=== PATIENT | male | born 1945 | race Caucasian/White ===

== ENCOUNTER 2016-06-12 05:56 | Emergency (ER) | payer MEDICARE, BC ==
[2016-06-12] MEDS ORDERED: MORPHINE SULFATE 10 MG/ML INJ IV ONE ×3 (06:17→09:16)
[2016-06-12] MEDS ORDERED: ONDANSETRON HCL INJ/PF 4 MG/2 ML SDV IV ONE ×2 (06:17→09:16)
[2016-06-12] MEDS ORDERED: KETOROLAC TROMETHAMINE INJ/PF 30 MG/1 ML SDV IV ONE (06:17)
--- NOTE | 2016-06-12 06:21 | ER Document Report ---
ED General - General Information source: Patient TRAVEL OUTSIDE OF THE [place] IN LAST 30 DAYS: No - HPI Patient complains to provider of: Left Flank Pain Onset: This morning - 04:30 Onset/Duration: Sudden, Persistent Associated symptoms: Nausea <DUKE NOLASCO - Last Filed: 06/12/16 07:48> <SELWYN BLANCO - Last Filed: 06/12/16 10:10> - General Chief Complaint: Flank Pain Stated Complaint: LEFT FLANK PAIN, NAUSEA Notes: Patient is a 70-year-old male presenting to the emergency department concerned of left-sided flank pain that radiates into his shoulder blade onset this morning at approximately 04:30. Patient's states that he got up to use the restroom and went back to sleep. Shortly thereafter, the patient awoke with excruciating pain in his left lower back. The patient has a history of kidney stones, but he states that he has "never felt pain like this before." (DUKE NOLASCO) - Related Data Allergies/Adverse Reactions: No Known Allergies Allergy (Verified 06/12/16 06:00) Past Medical History - General Information source: Patient, Relative - - Social History Smoking Status: Current Every Day Smoker Cigarette use (# per day): Yes - 1/2 ppd Chew tobacco use (# tins/day): No Frequency of alcohol use: None Drug Abuse: None Lives with: Spouse/Significant other Family History: Reviewed & Not Pertinent Patient has suicidal ideation: No Patient has homicidal ideation: No - Past Medical History Cardiac Medical History: Reports: Hx Hypercholesterolemia, Hx Hypertension Renal/ Medical History: Reports: Hx Kidney Stones Past Surgical History: Reports: Hx Kidney (Renal Surgery) - Kidney Stones <DUKE NOLASCO - Last Filed: 06/12/16 07:48> Review of Systems - Review of Systems Constitutional: No symptoms reported EENT: No symptoms reported Cardiovascular: No symptoms reported Respiratory: No symptoms reported Gastrointestinal: See HPI, Nausea Genitourinary: See HPI, Flank pain - Left Male Genitourinary: No symptoms reported Musculoskeletal: No symptoms reported Skin: No symptoms reported Hematologic/Lymphatic: No symptoms reported Neurological/Psychological: No symptoms reported -: Yes All other systems reviewed and negative <DUKE NOLASCO - Last Filed: 06/12/16 07:48> Physical Exam - Vital signs Interpretation: Hypertensive - 172/92 in room - General General appearance: Alert - HEENT Head: Normocephalic, Atraumatic Eyes: Normal Pupils: PERRL - Respiratory Respiratory status: No respiratory distress Chest status: Nontender Breath sounds: Normal Chest palpation: Normal - Cardiovascular Rhythm: Regular - Abdominal Distension: No distension Bowel sounds: Normal Tenderness: Tender - Left upper quadrant tender to palpation. Organomegaly: No organomegaly - Back Back: CVA tenderness - Left - Extremities General upper extremity: Normal inspection, Nontender, Normal color, Normal temperature General lower extremity: Normal inspection, Nontender, Normal color, Normal temperature - Neurological Neuro grossly intact: Yes Cognition: Normal [place] Coma Scale Eye Opening: Spontaneous [place] Coma Scale Verbal: Oriented [place] Coma Scale Motor: Obeys Commands Faisal Coma Scale Total: 15 Speech: Normal - Psychological Associated symptoms: Normal affect, Normal mood - Skin Skin Temperature: Warm Skin Moisture: Dry Skin Color: Normal <DUKE NOLASCO - Last Filed: 06/12/16 07:48> Course - Laboratory Result Diagrams: 06/12/16 06:15 06/12/16 06:15 <DUKE NOLASCO - Last Filed: 06/12/16 07:48> - Laboratory Result Diagrams: 06/12/16 06:15 06/12/16 06:15 - Diagnostic Test Radiology reviewed: Image reviewed, Reports reviewed - Large left renal mass suspicious for hemorrhage into the mass - EKG Interpretation by Nj EKG shows normal: Sinus rhythm, [place], Intervals, QRS Complexes. abnormal: ST-T Waves - Borderline T abnormalities Rate: Normal - 51 Heart block present: 1st Degree - Consults Dr. Sow Time consulted: 08:40 Consulted provider: other - Will accept at [facility] for management of this left hemorrhagic renal mass. <SELWYN BLANCO - Last Filed: 06/12/16 10:10> - Re-evaluation Re-evalutation: 06/12/16 10:10 Transport is here for the patient this time. His vital signs are stable. He is actually feeling much better at this time. (SELWYN BLANCO) - Vital Signs Vital signs: Temp Pulse Resp BP Pulse Ox 97.8 F 48 L 27 H 148/78 H 86 L 06/12/16 08:01 06/12/16 06:00 06/12/16 09:01 06/12/16 09:01 06/12/16 09:01 (DUKE NOLASCO) (SELWYN BLANCO) - Laboratory Laboratory results interpreted by me: 06/12/16 06/12/16 06/12/16 06:15 06:15 07:05 Hgb 13.3 L Glucose 142 H Total Protein 5.6 L Albumin 3.3 L Urine Protein 100 H Urine Blood MODERATE H (SELWYN BLANCO) Discharge <DUKE NOLASCO - Last Filed: 06/12/16 07:48> <SELWYN BLANCO - Last Filed: 06/12/16 10:10> - Discharge Clinical Impression: Renal mass, left, Renal hemorrhage, left Condition: Stable Disposition: RAYNE Sanchez Attestation: 06/12/16 07:46 I personally performed the services described in the documentation, reviewed and edited the documentation which was dictated to the scribe in my presence, and it accurately records my words and actions. (SELWYN BLANCO) Scribe Documentation - Scribe Written by Daniel:: Duke Nolasco 06/12/2016 06:17 acting as scribe for :: Anai <DUKE NOLASCO - Last Filed: 06/12/16 07:48>
[2016-06-12] MEDS ORDERED: NORMAL SALINE 1000 ML 1,000 ML IV ONE (06:29)
[2016-06-12 06:35] LABS: ABSOLUTE EOSINOPHILS # (AUTO) 0.2 10^3/uL (0.0-0.6); ABSOLUTE LYMPHOCYTES (AUTO) 1.6 10^3/uL (0.5-4.7); ABSOLUTE MONOCYTES (AUTO) 0.7 10^3/uL (0.1-1.4); ABSOLUTE NEUT (AUTO) 3.4 10^3/uL (1.7-8.2); BASOPHILS % (AUTO) 0.5 % (0-2); HEMOGLOBIN 13.3 g/dL (13.5-17.0); HGB HCT DIFFERENCE 0.9; LYMPHOCYTES % (AUTO) 27.5 % (13-45); MEAN CORPUSCULAR HEMOGLOBIN 29.1 pg (27.0-33.4); MEAN CORPUSCULAR HGB CONC 34.1 g/dL (32.0-36.0); MEAN CORPUSCULAR VOLUME 85 fl (80-97); MONOCYTES % (AUTO) 11.4 % (3-13); RED BLOOD COUNT 4.57 10^6/uL (4.35-5.55); RED CELL DISTRIBUTION WIDTH 13.3 % (11.5-14.0); SEGMENTED NEUTROPHILS % (AUTO) 57.6 % (42-78); WHITE BLOOD COUNT 5.9 10^3/uL (4.0-10.5)
[2016-06-12 06:58] LABS: ALANINE AMINOTRANSFERASE 37 U/L (21-72); ALBUMIN 3.3 g/dL (3.5-5.0); ALKALINE PHOSPHATASE 77 U/L (38-126); ANION GAP 8 (5-19); ASPARTATE AMINO TRANSFERASE 20 U/L (17-59); BILIRUBIN,TOTAL 0.6 mg/dL (0.2-1.3); BLOOD UREA NITROGEN 13 mg/dL (7-20); CALCIUM 8.7 mg/dL (8.4-10.2); CARBON DIOXIDE 27 mmol/L (22-30); CHLORIDE 107 mmol/L (98-107); CREATININE RESULT 0.88 mg/dL (0.52-1.25); GLUCOSE 142 mg/dL (75-110); POTASSIUM 3.9 mmol/L (3.6-5.0); SODIUM 141.6 mmol/L (137-145); TOTAL PROTEIN 5.6 g/dL (6.3-8.2)
[2016-06-12 07:50] LABS: AMORPHOUS SEDIMENT,URINE TRACE /HPF; APPEARANCE,URINE CLOUDY; BILIRUBIN,URINE NEGATIVE (NEGATIVE); GLUCOSE, URINE NEGATIVE (NEGATIVE); KETONES,URINE NEGATIVE (NEGATIVE); LEUKOCYTE ESTERASE,URINE NEGATIVE (NEGATIVE); NITRITE,URINE NEGATIVE (NEGATIVE); PROTEIN,URINE 100 mg/dL (NEGATIVE); URINE SPECIFIC GRAVITY 1.011; UROBILINOGEN,URINE NEGATIVE mg/dL (<2.0)
[2016-06-12 07:59] LABS: PROTHROMBIN TIME 13.5 SEC (11.4-15.4)
[2016-06-12 10:13] VITALS: BP 137/92
--- NOTE | 2016-06-12 10:20 | EKG REPORT ---
SEVERITY:- ABNORMAL ECG - SINUS RHYTHM FIRST DEGREE AV BLOCK BORDERLINE T WAVE ABNORMALITIES : Confirmed by: Yunior Thomas 12-Jun-2016 10:19:01
== END 2016-06-12 10:35 | disposition short-term general hospital (02) ==
LOC: ER 05:56
DX: N28.9 Disorder of kidney and ureter, unspecified (principal); N28.89 Other specified disorders of kidney and ureter; R10.812 Left upper quadrant abdominal tenderness; R11.0 Nausea; M54.5 Low back pain; I44.0 Atrioventricular block, first degree; I10 Essential (primary) hypertension; F17.200 Nicotine dependence, unspecified, uncomplicated; Z87.442 Personal history of urinary calculi; Z98.890 Other specified postprocedural states
CPT/HCPCS: 93005; 96376; 99285; 96361; 96374; 96375; 36415; 85025; 85610; 80053; 81001; 76380; 93010; J1885; J2270; J2405; J7030

== ENCOUNTER 2020-01-22 16:03 | Inpatient (IN) | payer MEDICARE ==
--- NOTE | 2020-01-22 17:47 | ER Document Report ---
ED Medical Screen (RME) - General Chief Complaint: Chest Pain Stated Complaint: CHEST PAIN, LEFT ARM PAIN Time Seen by Provider: 01/22/20 17:39 Primary Care Provider: YUSUF STACK PA-C [Primary Care Provider] - Follow up as needed Mode of Arrival: Ambulatory Information source: Patient Notes: 74-year-old male presented to ED for complaint of chest pain this afternoon. He states he would not to come but his insisted. He is not having pain at this time. He states the pain was like a numbness heaviness feeling in his chest that radiated to his left shoulder arm jaw neck and ear. He states he has never had a heart attack in the past but he has had high blood pressure cholesterol tremors. 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 He states he does smoke half a pack a day does not drink alcohol or use any illicit drugs. I have greeted and performed a rapid initial assessment of this patient. A comprehensive ED assessment and evaluation of the patient, analysis of test results and completion of medical decision making process will be conducted by an additional ED providers. TRAVEL OUTSIDE OF THE [place] IN LAST 30 DAYS: No - Related Data Allergies/Adverse Reactions: No Known Allergies Allergy (Verified 06/12/16 06:00) Home Medications: amlod/benaz, atorvastatin, primidone Past Medical History - Past Medical History Cardiac Medical History: Reports: Hx Hypercholesterolemia, Hx Hypertension Renal/ Medical History: Reports: Hx Kidney Stones Past Surgical History: Reports: Hx Kidney (Renal Surgery) - Kidney Stones Physical Exam - Vital signs Vitals: Temp Pulse Resp BP Pulse Ox 98.2 F 74 16 141/77 H 100 01/22/20 16:13 01/22/20 16:13 01/22/20 16:13 01/22/20 16:13 01/22/20 16:13 Course - Vital Signs Vital signs: Temp Pulse Resp BP Pulse Ox 98.2 F 74 16 141/77 H 100 01/22/20 16:13 01/22/20 16:13 01/22/20 16:13 01/22/20 16:13 01/22/20 16:13 Doctor's Discharge - Discharge Referrals: YUSUF STACK PA-C [Primary Care Provider] - Follow up as needed
[2020-01-22 18:06] LABS: ABSOLUTE BASOPHILS # (AUTO) 0.1 10^3/uL (0.0-0.2); ABSOLUTE EOSINOPHILS # (AUTO) 0.3 10^3/uL (0.0-0.6); ABSOLUTE LYMPHOCYTES (AUTO) 1.9 10^3/uL (0.5-4.7); ABSOLUTE MONOCYTES (AUTO) 0.8 10^3/uL (0.1-1.4); ABSOLUTE NEUT (AUTO) 4.8 10^3/uL (1.7-8.2); BASOPHILS % (AUTO) 0.8 % (0-2); EOSINOPHILS % (AUTO) 4.3 % (0-6); HEMATOCRIT 40.4 % (37.9-51.0); HEMOGLOBIN 13.9 g/dL (13.5-17.0); LYMPHOCYTES % (AUTO) 23.7 % (13-45); MEAN CORPUSCULAR HEMOGLOBIN 29.6 pg (27.0-33.4); MEAN CORPUSCULAR HGB CONC 34.5 g/dL (32.0-36.0); MEAN CORPUSCULAR VOLUME 86 fl (80-97); MONOCYTES % (AUTO) 10.2 % (3-13); PLATELET COUNT 271 10^3/uL (150-450); RED BLOOD COUNT 4.71 10^6/uL (4.35-5.55); RED CELL DISTRIBUTION WIDTH 13.7 % (11.5-14.0); TOTAL CELLS COUNTED % (AUTO) 100 %; WHITE BLOOD COUNT 7.8 10^3/uL (4.0-10.5)
--- NOTE | 2020-01-22 18:08 | ER Document Report ---
ED Cardiac - General Chief Complaint: Chest Pain > 30 Stated Complaint: CHEST PAIN, LEFT ARM PAIN Time Seen by Provider: 01/22/20 17:39 Primary Care Provider: YUSUF STACK PA-C [Primary Care Provider] - Follow up as needed Mode of Arrival: Ambulatory Notes: 74-year-old man presents to the emergency department with a complaint of chest pain which began this afternoon. He was using a push mower cutting grass when he began having pain in the left arm and shoulder and in the substernal region. He states he had a similar type of episode 1 day last week. He was walking too fast. He describes substernal chest pain radiating into his left shoulder and arm and associated diaphoresis. He stopped cutting grass, went into a shaded area, use a cool towel, and after about 15 to 20 minutes the pain improved. He is now chest pain-free. States that he has no known history of coronary artery disease. Risk factors hypertension, hyperlipidemia, + smoker (approx 1/2 PPD) he denies a family history of CAD.. TRAVEL OUTSIDE OF THE [place] IN LAST 30 DAYS: No - Related Data Allergies/Adverse Reactions: No Known Allergies Allergy (Verified 01/22/20 17:45) Home Medications: amlod/benaz, atorvastatin, primidone Past Medical History - General Information source: Patient - Social History Smoking Status: Current Every Day Smoker Chew tobacco use (# tins/day): No Frequency of alcohol use: None Drug Abuse: None Family History: Reviewed & Not Pertinent Patient has homicidal ideation: No - Past Medical History Cardiac Medical History: Reports: Hx Hypercholesterolemia, Hx Hypertension Renal/ Medical History: Reports: Hx Kidney Stones Past Surgical History: Reports: Hx Kidney (Renal Surgery) - Kidney Stones Review of Systems - Review of Systems Notes: Constitutional: Negative for fever. HENT: Negative for sore throat. Eyes: Negative for visual changes. Cardiovascular:+chest pain., + Diaphoresis Respiratory: Negative for shortness of breath. Gastrointestinal: Negative for abdominal pain, vomiting or diarrhea. Genitourinary: Negative for dysuria. Musculoskeletal: Negative for back pain. Skin: Negative for rash. Neurological: Negative for headaches, weakness or numbness. 10 point ROS negative except as marked above and in HPI. Physical Exam - Vital signs Vitals: Temp Pulse Resp BP Pulse Ox 98.2 F 74 16 141/77 H 100 01/22/20 16:13 01/22/20 16:13 01/22/20 16:13 01/22/20 16:13 01/22/20 16:13 - Notes Notes: PHYSICAL EXAMINATION: Physical Exam: General: Well-nourished well-developed 74-year-old man in no acute distress HEENT: NC/AT, pupils equal round and reactive to light, MM moist,nares clear, oropharynx clear, airway patent Neck: supple, no adenopathy, no masses. Good range of motion Lungs: clear, no wheezing, no rales no rhonchi CVS: Regular rate and rhythm no murmur gallop or rub Abdomen: Soft, active, nontender, no masses, no hepatosplenomegaly Ext: No edema, clubbing or cyanosis. Neuro: Alert and responsive, moving all 4 extremities on command, cranial nerves intact, no focal findings Skin: Intact no open lesions, no rash PSYCH: Normal mood, normal affect. Course - Re-evaluation Re-evalutation: 01/22/20 18:32 Patient presents with good story for anginal type pain. His episode lasted about 15 to 20 minutes and is now completely resolved. 01/22/20 18:33 HEART Score: HEART score for chest pain patients Score History Highly suspicious 2 ECG Normal 0 Age > or =65 year 2 Risk factors =3 risk factors or history of atherosclerotic disease Troponin >1x normal limit 2 Total = 8 If HEART score is = 3 AND both tronponin measurments are normal, the 30 day risk of a major adverse cardiac event (all-cause mortality, myocardia infarction or need for coronary revscularization) is < 1% (Sensitivity 100%, NPV 100%). Chest pain in a patient without evidence of cardiac or other serious etiology on workup today. I discussed with patient that, based on their age, risk factors and emergency department testing today, the likelihood that their symptoms are related to a heart attack is very low (estimated risk of heart attack or over the next 30 days of less than 1%). The patient demonstrates decision making capacity and has verbalized an understanding of these risks to me. Based on this, the patient has chosen to follow-up as an outpatient. Usual chest pain return precautions reviewed. The patient states understanding and agreement with this plan. 01/22/20 21:04 I have reviewed the findings of the labs, x-ray and EKG with the patient. I have expressed my concerns with his total heart score of 8. I spoke with the cardiology on-call Dr. Bryan, he felt that the patient would need to be in a position for intervention if needed. Dr. Miguel, was contacted states that he will be at [facility] tomorrow morning and will be doing catheterizations. Given the patient's story and symptoms and risk factors he will plan to see the patient and perform a catheterization at 1030 or 11 in the AM. He states Lovenox 1 mg/kg every 12 hours, n.p.o. after midnight except for medications and sips of water. I have discussed the patient with the hospitalist Dr. Casas, states he will see the patient in the emergency department. - Vital Signs Vital signs: Temp Pulse Resp BP Pulse Ox 98.2 F 74 21 H 140/75 H 97 01/22/20 16:13 01/22/20 16:13 01/22/20 20:01 01/22/20 20:01 01/22/20 20:01 - Laboratory Result Diagrams: 01/22/20 17:51 01/22/20 17:51 Laboratory results interpreted by me: 01/22/20 17:51 Creatinine 1.57 H Est GFR ( Amer) 53 L Est GFR (MDRD) Non-Af 44 L I have reviewed laboratory data and used this information for the treatment decisions regarding the patient. - Diagnostic Test Radiology reviewed: Image reviewed, Reports reviewed Radiology results interpreted by me: 01/22/20 21:02 Chest x-ray: No acute cardiopulmonary findings. - EKG Interpretation by Me Rate: Normal - EKG interpretation by me: Normal sinus rhythm, rate 71, first-degree AV block, borderline left axis deviation, no acute ST-T wave abnormalities, no ischemic changes, no comparative EKG. Discharge - Discharge Clinical Impression: Acute coronary syndrome, Chest pain Condition: Good Disposition: ADMITTED INPATIENT Admitting Provider: Augusto (Hospitalist) Unit Admitted: IMCU Referrals: YUSUF STACK PA-C [Primary Care Provider] - Follow up as needed
[2020-01-22 18:24] LABS: ALBUMIN 4.3 g/dL (3.5-5.0); ALKALINE PHOSPHATASE 96 U/L (38-126); ANION GAP 8 (5-19); ASPARTATE AMINO TRANSFERASE 24 U/L (17-59); BILIRUBIN,TOTAL 0.5 mg/dL (0.2-1.3); BLOOD UREA NITROGEN 20 mg/dL (7-20); CALCIUM 9.3 mg/dL (8.4-10.2); CARBON DIOXIDE 25 mmol/L (22-30); CHLORIDE 106 mmol/L (98-107); CREATINE KINASE 145 U/L (55-170); GLUCOSE 99 mg/dL (75-110); POTASSIUM 4.5 mmol/L (3.6-5.0)
--- NOTE | 2020-01-22 18:37 | RADIOLOGY REPORT (SQ) ---
EXAM DESCRIPTION: CHEST 2 VIEWS IMAGES COMPLETED DATE/TIME: 01/22/2020 5:21 pm REASON FOR STUDY: Chest pain/numbness that radiated to his arm shoul COMPARISON: None. EXAM PARAMETERS: NUMBER OF VIEWS: two views TECHNIQUE: Digital Frontal and Lateral radiographic views of the chest acquired. RADIATION DOSE: NA LIMITATIONS: none FINDINGS: LUNGS AND PLEURA: No opacities, masses or pneumothorax. No pleural effusion. MEDIASTINUM AND HILAR STRUCTURES: No masses or contour abnormalities. HEART AND VASCULAR STRUCTURES: Heart normal size. No evidence for failure. BONES: No acute findings. HARDWARE: None in the chest. OTHER: No other significant finding. IMPRESSION: NO ACUTE RADIOGRAPHIC FINDING IN THE CHEST. TECHNICAL DOCUMENTATION: JOB ID: [id number] 2010 [employer]- All Rights Reserved Reading location - IP/workstation name: [id number]
[2020-01-22] MEDS ORDERED: ASPIRIN 81 MG TABLET, CHEWABLE PO ONE (19:00)
[2020-01-22] MEDS ORDERED: NITROGLYCERIN 2% OINTMENT 1 GM PACKET TP ONE (19:01)
[2020-01-22 19:51] LABS: INTERNATIONAL RATION (INR) 1.01; PROTHROMBIN TIME 13.5 SEC (11.4-15.4)
[2020-01-22 19:52] LABS: PARTIAL THROMBOPLASTIN TIME 34.3 SEC (23.5-35.8)
[2020-01-22] MEDS ORDERED: ENOXAPARIN SODIUM INJ 100 MG/1 ML DISP.SYRIN SUBCUT ONE (20:59)
--- NOTE | 2020-01-22 21:30 | EKG REPORT ---
SEVERITY:- ABNORMAL ECG - SINUS RHYTHM FIRST DEGREE AV BLOCK BORDERLINE LEFT AXIS DEVIATION : Confirmed by: Yunior Thomas 22-Jan-2020 21:29:45
[2020-01-22] MEDS ORDERED: NITROGLYCERIN 0.4 MG/TAB 25 TAB/BOTTLE SL PRN (21:36)
[2020-01-22] MEDS ORDERED: ACETAMINOPHEN 325 MG TABLET PO PRN (21:37)
[2020-01-22] MEDS ORDERED: GLUCAGON,HUMAN RECOMB 1 MG INJ SUBCUT PRN (21:37)
[2020-01-22] MEDS ORDERED: DEXTROSE 40% GEL 15 GM TUBE PO PRN ×2 (21:37)
[2020-01-22] MEDS ORDERED: DEXTROSE 50%-WATER 25 GM/50 ML DISP.SYRIN IV PRN ×2 (21:37)
--- NOTE | 2020-01-22 22:04 | PDOC H&P ---
History of Present Illness Admission Date/PCP: 01/22/20 21:20 YUSUF STACK PA-C History of Present Illness: FRAN SAMANO is a 74 year old male with a history of HTN, hyperlipidemi, and a long smoking history who presents with chest pain. He was out cutting his grass with a push mower today when he had left sided chest pain that radiated to his jaw and left arm. He sat down to rest, and in 3-4 minutes it went away. He does not have ahistory of CAD, no family history. He had a similar episode a few days ago while walking out to the mailbox, which also resolved with rest. He has been pain-free since the episode today. The ER called cardiology who will see him tomorrow and decide about further evaluation at that time. Past Medical History Cardiac Medical History: Reports: Hyperlipidema, Hypertension Social History Smoking Status: Current Every Day Smoker Electronic Cigarette use?: No Family History Family History: Reviewed & Not Pertinent Parental Family History Reviewed: Yes Children Family History Reviewed: Yes Sibling(s) Family History Reviewed.: Yes Medication/Allergy Allergies/Adverse Reactions: No Known Allergies Allergy (Verified 01/22/20 17:45) Review of Systems All systems: reviewed and no additional remarkable complaints except as stated - all systems were reviewed and were negative except as noted in the HPI Physical Exam Vital Signs: Temp Pulse Resp BP Pulse Ox 98.2 F 74 21 H 140/75 H 97 01/22/20 16:13 01/22/20 16:13 01/22/20 20:01 01/22/20 20:01 01/22/20 20:01 Intake & Output 01/21/20 01/22/20 01/23/20 06:59 06:59 06:59 Weight 92.986 kg General appearance: PRESENT: no acute distress, cooperative, disheveled Head exam: PRESENT: atraumatic, normocephalic Eye exam: PRESENT: EOMI, PERRLA. ABSENT: conjunctival injection, nystagmus, scleral icterus Ear exam: PRESENT: normal external ear exam Mouth exam: PRESENT: moist, neck supple Throat exam: ABSENT: post pharyngeal erythema Neck exam: PRESENT: full ROM. ABSENT: carotid bruit, JVD, lymphadenopathy, men ingismus, tenderness, thyromegaly Respiratory exam: PRESENT: clear to auscultation rachell, symmetrical, unlabored. ABSENT: accessory muscle use, chest wall tenderness, crackles, prolonged expiratory phas, rhonchi, tachypnea, wheezes Cardiovascular exam: PRESENT: RRR, +S1, +S2 Pulses: PRESENT: normal carotid pulses Vascular exam: PRESENT: normal capillary refill GI/Abdominal exam: PRESENT: normal bowel sounds, soft. ABSENT: distended, guarding, rebound, tenderness Extremities exam: ABSENT: clubbing, pedal edema Musculoskeletal exam: PRESENT: normal inspection. ABSENT: deformity Neurological exam: PRESENT: alert, awake, oriented to person, oriented to place, oriented to time, oriented to situation, CN II-XII grossly intact. ABSENT: motor sensory deficit Psychiatric exam: PRESENT: appropriate affect, normal mood Skin exam: PRESENT: dry, warm Results Laboratory Results: 01/22/20 17:51 01/22/20 17:51 01/22/20 01/22/20 17:51 17:51 WBC 7.8 RBC 4.71 Hgb 13.9 Hct 40.4 MCV 86 MCH 29.6 MCHC 34.5 RDW 13.7 Plt Count 271 Seg Neutrophils % 61.0 Sodium 138.7 Potassium 4.5 Chloride 106 Carbon Dioxide 25 Anion Gap 8 BUN 20 Creatinine 1.57 H Est GFR ( Amer) 53 L Glucose 99 Calcium 9.3 Magnesium 2.2 Total Bilirubin 0.5 AST 24 Alkaline Phosphatase 96 Total Protein 7.0 Albumin 4.3 01/22/20 01/22/20 01/22/20 17:51 17:51 20:14 Creatine Kinase 145 Troponin I 0.098 0.116 Impressions: Chest X-Ray 01/22/20 17:44 IMPRESSION: NO ACUTE RADIOGRAPHIC FINDING IN THE CHEST. Assessment and Plan - Diagnosis (1) NSTEMI (non-ST elevated myocardial infarction) Is this a current diagnosis for this admission?: Yes Plan: Therapeutic Lovenox BID. ASA, statin, PRN NTG. Telemetry, serial troponins. CArdiology to evaluate in AM, stress test vs. cardiac catheterization. - Time Time Spent with patient: 35 or more minutes Anticipated Discharge Disposition: Home, Self Care Anticipated Discharge Timeframe: within 72 hours - Inpatient Certification Based on my medical assessment, after consideration of the patient's comorbidities, presenting symptoms, or acuity I expect that the services needed warrant INPATIENT care.: Yes I certify that my determination is in accordance with my understanding of Medicare's requirements for reasonable and necessary INPATIENT services [42 CFR 412.3e].: Yes Medical Necessity: Need Close Monitoring Due to Risk of Patient Decompensation, Need For Continuous Telemetry Monitoring, Risk of Complication if Not Cared For in Hospital
[2020-01-22] MEDS: ATORVASTATIN CALCIUM 80 MG TABLET PO SCH (23:01)
[2020-01-23] MEDS ORDERED: VERAPAMIL HCL 5 MG, LIDOCAINE HCL/PF 4 ML, NORMAL SALINE 12 ML, NITROGLYCERIN/D5W 0.4 M... IV PRN ×5 (08:59)
[2020-01-23] MEDS: ASPIRIN 325 MG TABLET PO SCH (09:36)
[2020-01-23] MEDS: ENOXAPARIN SODIUM INJ 100 MG/1 ML DISP.SYRIN SUBCUT SCH ×2 (09:37→21:06)
--- NOTE | 2020-01-23 09:37 | EKG REPORT ---
SEVERITY:- ABNORMAL ECG - SINUS BRADYCARDIA FIRST DEGREE AV BLOCK BORDERLINE T ABNORMALITIES, ANTERIOR LEADS : Confirmed by: Yunior Thomas 23-Jan-2020 09:36:42
--- NOTE | 2020-01-23 10:03 | PDOC CONSULTATION ---
Consultation Consult Date: 01/23/20 Attending physician:: JOSE ANGEL JAMIL Provider Consulted: LAKISHA ESPINOZA Consult reason:: NSTEMI History of Present Illness Admission Date/PCP: 01/22/20 21:20 YUSUF STACK PA-C Patient complains of: chest pain History of Present Illness: FRAN SAMANO is a 74 year old male With hypertension and hyperlipidemia and tobacco use was admitted with unstable angina via chest pain while mowing and proceeding week he had 1 day of dyspnea on exertion and was noted to have abnormal troponin values with rise pattern suggestive for NSTEMI Patient was admitted to hospitalist service remained hemodynamically stable overnight and was n.p.o. for planned consideration for cardiac catheterization procedure Past Medical History Cardiac Medical History: Reports: Hyperlipidema, Hypertension Pulmonary Medical History: Reports: None EENT Medical History: Reports: None Neurological Medical History: Reports: None Endocrine Medical History: Reports: None Renal/ Medical History: Reports: Chronic Kidney Disease, Nephrolithiasis Malignancy Medical History: Reports: None GI Medical History: Reports: None Musculoskeltal Medical History: Reports: None Skin Medical History: Reports: None Psychiatric Medical History: Reports: None Denies: Depression Traumatic Medical History: Reports: None Hematology: Reports: None Infectious Medical History: Reports: None Past Surgical History Past Surgical History: Reports: Cardiac Catheterization - done remotely in [place], [place] with reported normal findings, Other - Renal Cancer Treatment requiring Neprectomy, Bowel Polyp removal Social History Information Source: Patient Lives with: Family Smoking Status: Current Every Day Smoker Cigarettes Packs Per Day: 1.0 Electronic Cigarette use?: Yes Last Time Smoked: 01/22/2020 Frequency of Alcohol Use: Rare Hx Recreational Drug Use: No Hx Prescription Drug Abuse: No Family History Family History: Reviewed & Not Pertinent Parental Family History Reviewed: No - denies early cad in first degree relatives Children Family History Reviewed: No Sibling(s) Family History Reviewed.: No Medication/Allergy Home Medications: Amlodipine Besylate/Benazepril [Amlodipine-Benazepril 10-20 mg] 1 cap PO DAILY 01/23/20 Atorvastatin Calcium [Lipitor 40 mg Tablet] 40 mg PO DAILY 01/23/20 Primidone [Mysoline 50 mg Tablet] 50 mg PO DAILY 01/23/20 Allergies/Adverse Reactions: No Known Allergies Allergy (Verified 01/22/20 17:45) Review of Systems Cardiovascular: PRESENT: as per HPI, chest pain Physical Exam Vital Signs: Temp Pulse Resp BP Pulse Ox 97.6 F 47 L 16 108/55 L 95 01/23/20 00:16 01/23/20 07:00 01/23/20 00:16 01/23/20 00:16 01/23/20 00:16 Intake & Output 01/22/20 01/23/20 01/24/20 06:59 06:59 06:59 Output Total 600 Balance -600 Weight 93.2 kg General appearance: PRESENT: no acute distress Head exam: PRESENT: atraumatic Eye exam: PRESENT: EOMI Mouth exam: PRESENT: moist Respiratory exam: PRESENT: prolonged expiratory phas Cardiovascular exam: PRESENT: RRR Pulses: PRESENT: normal radial pulses Vascular exam: PRESENT: normal capillary refill GI/Abdominal exam: PRESENT: hyperactive bowel sounds Musculoskeletal exam: PRESENT: ambulatory Neurological exam: PRESENT: alert, oriented to time Results Laboratory Results: 01/22/20 17:51 01/22/20 17:51 01/22/20 01/22/20 17:51 17:51 WBC 7.8 RBC 4.71 Hgb 13.9 Hct 40.4 MCV 86 MCH 29.6 MCHC 34.5 RDW 13.7 Plt Count 271 Seg Neutrophils % 61.0 Sodium 138.7 Potassium 4.5 Chloride 106 Carbon Dioxide 25 Anion Gap 8 BUN 20 Creatinine 1.57 H Est GFR ( Amer) 53 L Glucose 99 Calcium 9.3 Magnesium 2.2 Total Bilirubin 0.5 AST 24 Alkaline Phosphatase 96 Total Protein 7.0 Albumin 4.3 01/22/20 01/22/20 01/22/20 17:51 17:51 20:14 Creatine Kinase 145 Troponin I 0.098 0.116 01/23/20 01/23/20 02:00 08:03 Creatine Kinase Troponin I 0.123 0.125 Impressions: Chest X-Ray 01/22/20 17:44 IMPRESSION: NO ACUTE RADIOGRAPHIC FINDING IN THE CHEST. Assessment & Plan - Diagnosis (1) NSTEMI (non-ST elevated myocardial infarction) Is this a current diagnosis for this admission?: Yes Plan: Discussed options between medical management stress testing and/or cardiac catheterization with patient preferring to proceed with cardiac catheterization risk and benefits expressed to patient not limited to bleeding blood vessel injury contrast nephropathy need for urgent coronary bypass grafting and or stent work with the possibility of need to transfer to outside facility such as [facility] depending upon coronary anatomy Smoking cessation reemphasized Continue aggressive risk factor modification with aspirin and statin therapy Follow creatinine with pre-hydration and post hydration status Further results depend upon findings at cardiac catheterization
[2020-01-23] MEDS ORDERED: LIDOCAINE 1% INJ-PF (10 MG/ML) 30 ML SDV ONE (11:31)
[2020-01-23] MEDS ORDERED: HEPARIN SODIUM,PORCINE/NS/PF 2,000 UNIT/1,000 ML RTUINJ IV ONE (11:31)
[2020-01-23] MEDS ORDERED: DIPHENHYDRAMINE HCL 50 MG/ML VIAL ONE (12:00)
[2020-01-23] MEDS ORDERED: MIDAZOLAM 2 MG/2 ML INJ ONE (12:00)
[2020-01-23] MEDS ORDERED: HEPARIN SOD (PORCINE) 1,000 UNIT/ML 10 ML VIAL ONE (12:01)
[2020-01-23] MEDS ORDERED: FENTANYL CITRATE INJ/PF 100 MCG/2 ML AMPUL ONE (12:01)
--- NOTE | 2020-01-23 12:27 | PDOC PROGRESS REPORT ---
Subjective Progress Note for:: 01/23/20 Subjective:: Patient admitted with unstable angina with chest pain. He is currently chest pain-free. He has been seen by Dr. Miguel. Plan is to arrange for cardiac catheterization today with further plans to be subsequently determined Reason For Visit: NSTEMI Physical Exam Vital Signs: Temp Pulse Resp BP Pulse Ox 98.0 F 46 L 20 122/64 93 01/23/20 11:00 01/23/20 07:41 01/23/20 07:41 01/23/20 07:41 01/23/20 07:41 Intake & Output 01/22/20 01/23/20 01/24/20 06:59 06:59 06:59 Output Total 600 Balance -600 Weight 93.2 kg General appearance: PRESENT: no acute distress, well-developed, well-nourished Head exam: PRESENT: atraumatic, normocephalic Eye exam: PRESENT: conjunctiva pink, EOMI, PERRLA. ABSENT: scleral icterus Ear exam: PRESENT: normal external ear exam Mouth exam: PRESENT: moist, tongue midline Neck exam: ABSENT: carotid bruit, JVD, lymphadenopathy, thyromegaly Respiratory exam: PRESENT: clear to auscultation rachell. ABSENT: rales, rhonchi, wheezes Cardiovascular exam: PRESENT: RRR. ABSENT: diastolic murmur, rubs, systolic murmur Pulses: PRESENT: normal dorsalis pedis pul Vascular exam: PRESENT: normal capillary refill GI/Abdominal exam: PRESENT: normal bowel sounds, soft. ABSENT: distended, guarding, mass, organolmegaly, rebound, tenderness Rectal exam: PRESENT: deferred Extremities exam: PRESENT: full ROM. ABSENT: calf tenderness, clubbing, pedal edema Neurological exam: PRESENT: alert, awake, oriented to person, oriented to place, oriented to time, oriented to situation, CN II-XII grossly intact. ABSENT: motor sensory deficit Psychiatric exam: PRESENT: appropriate affect, normal mood. ABSENT: homicidal ideation, suicidal ideation Skin exam: PRESENT: dry, intact, warm. ABSENT: cyanosis, rash Results Laboratory Results: 01/22/20 17:51 01/22/20 17:51 01/22/20 01/22/20 17:51 17:51 WBC 7.8 RBC 4.71 Hgb 13.9 Hct 40.4 MCV 86 MCH 29.6 MCHC 34.5 RDW 13.7 Plt Count 271 Seg Neutrophils % 61.0 Sodium 138.7 Potassium 4.5 Chloride 106 Carbon Dioxide 25 Anion Gap 8 BUN 20 Creatinine 1.57 H Est GFR ( Amer) 53 L Glucose 99 Calcium 9.3 Magnesium 2.2 Total Bilirubin 0.5 AST 24 Alkaline Phosphatase 96 Total Protein 7.0 Albumin 4.3 01/22/20 01/22/20 01/22/20 17:51 17:51 20:14 Creatine Kinase 145 Troponin I 0.098 0.116 01/23/20 01/23/20 02:00 08:03 Creatine Kinase Troponin I 0.123 0.125 Impressions: Chest X-Ray 01/22/20 17:44 IMPRESSION: NO ACUTE RADIOGRAPHIC FINDING IN THE CHEST. Assessment and Plan - Diagnosis (1) NSTEMI (non-ST elevated myocardial infarction) Is this a current diagnosis for this admission?: Yes Plan: Therapeutic Lovenox BID. ASA, statin, PRN NTG. Telemetry, and aggressive risk modification. Will follow up with cardiac catheterization result. - Time Time Spent with patient: 15-24 minutes Anticipated Discharge Disposition: Home, Self Care Anticipated Discharge Timeframe: within 48 hours
[2020-01-23] MEDS ORDERED: TICAGRELOR 90 MG TABLET ONE (12:30)
[2020-01-23] MEDS ORDERED: BIVALIRUDIN INJ 250 MG VIAL IV ONE (12:30)
--- NOTE | 2020-01-23 13:31 | Operative Report ---
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 After informed consent was obtained the patient was brought into the cardiac catheterization lab. Sterile prep and drape of the right wrist was carried out followed by infiltration with 1% Xylocaine. Using the percutaneous Seldinger technique, a 6 Mosotho Introducer sheath was placed into the right radial artery. Selective left and right coronary angiography was performed with a 6 Mosotho Barbeau pre-formed coronary catheter. The catheter was subsequently introduced in the artery and advanced to the ascending aorta. The aortic valve was crossed and the left ventricle was entered. Repeated measurements of the left heart pressure were made after injection of the contrast agent as used for left ventricle CINE-ography. ANALYSIS OF THE ANGIOGRAM: Selective CINE angiograms were obtained with the injection of contrast material into the left and right coronary ostium and left ventricular cavity. The left ventricular injection demonstrates normal LV size with preserved / normal wall motion . Ejection fraction is 55-60 % . No evidence for Aortic Stenosis by pullback technique. Trace to mild Mitral Regurgitation. CORONARY ANGIOGRAPHY: Coronary angiography performed in multiple projections revealed the following; LEFT MAIN: Moderate caliber vessels that appears angiographicaly patent. LEFT CIRCUMFLEX/OBTUSE MARGINAL: Moderate caliber vessel and appears angiographically patent LEFT ANTERIOR DESCENDING/DIAGONAL: Moderate caliber vessel. It appears grossly angiographically patent with minimal mid plaquing of less than 30%. RIGHT CORONARY ARTERY: Moderate caliber vessel with a 90 % distal diffuse stenosis. Intervention: Angiomax bolus and drip was started and then discontinued at completion of procedure. He was orally loaded with 180 mg of Brilinta at conclusion. A 6 Fr. JR4 Guide was utilized. A [employer] guidewire was fed into the distal / terminal aspect of the RCA. Predilation was carried out using a 2.5 x 15 mm semi-compliant Med[employer] balloon to 16 claude for 20 seconds with residual 50 % stenosis and ISMAEL 3 flow. A Resolute medicated 3.0 x 30 mm coronary stent was then placed at 20 CLAUDE for 35 seconds exhibiting 0 % residual stenosis with ISMAEL 3 flow. Patient tolerated procedure well. The stent balloon, wire and guide were removed without incident. A Tr Band was applied with removal of the right radial arterial sheath for adequate hemostasis. Moderate Conscious sedation was carried out for this procedure for 30 minutes under direct supervision with continuous oxygen saturation and hemodynamic monitoring. Impression: NSTEMI attributed to 90 % distal RCA lesion s/p PCI with medicated stent. Plan: Re-emphasized dual anti-platelet therapy for 12 months using ECASA 81 mg po q pm and Brilinta 90 mg po bid Smoking Cessation re-emphasized Statin to get LDL < 70 Offered Cardiac Rehab Continue beta blockade as being used for Essential tremor and recurrent MO protection Continue BP control Post Cath F/U with [facility] via [phone]
[2020-01-23] MEDS: ATORVASTATIN CALCIUM 80 MG TABLET PO SCH (21:06)
[2020-01-24] MEDS ORDERED: VERAPAMIL HCL IV PRN ×5 (05:00)
[2020-01-24] MEDS ORDERED: LIDOCAINE HCL IV PRN ×5 (05:00)
[2020-01-24] MEDS ORDERED: [UNRECOGNIZED DRUG - OTHER] IV PRN ×5 (05:00)
[2020-01-24] MEDS ORDERED: NORMAL SALINE IV PRN ×5 (05:00)
--- NOTE | 2020-01-24 08:35 | EKG REPORT ---
SEVERITY:- BORDERLINE ECG - SINUS BRADYCARDIA BORDERLINE T ABNORMALITIES, ANTERIOR LEADS : Confirmed by: Yunior Thomas 24-Jan-2020 08:34:30
[2020-01-24] MEDS: ASPIRIN 325 MG TABLET PO SCH (09:10)
[2020-01-24] MEDS: ENOXAPARIN SODIUM INJ 100 MG/1 ML DISP.SYRIN SUBCUT SCH (09:10)
[2020-01-24 09:11] LABS: ANION GAP 10 (5-19); BLOOD UREA NITROGEN 19 mg/dL (7-20); CALCIUM 9.4 mg/dL (8.4-10.2); CARBON DIOXIDE 23 mmol/L (22-30); CHLORIDE 105 mmol/L (98-107); GLUCOSE 124 mg/dL (75-110); POTASSIUM 4.3 mmol/L (3.6-5.0)
--- NOTE | 2020-01-24 12:55 | PDOC DISCHARGE SUMMARY ---
Impression - Admit/DC Date/PCP Admission Date/Primary Care Provider: 01/22/20 21:20 YUSUF STACK PA-C Discharge Date: 01/24/20 - Discharge Diagnosis (1) NSTEMI (non-ST elevated myocardial infarction) Is this a current diagnosis for this admission?: Yes (2) Tobacco abuse Is this a current diagnosis for this admission?: Yes (3) Chest pain Is this a current diagnosis for this admission?: Yes - Additional Information Resuscitation Status: Full Code Discharge Diet: Cardiac Discharge Activity: Activity As Tolerated Referrals: LAKISHA ESPINOZA MD [ASSOCIATE] - (Please call for appointment) YUSUF STACK PA-C [Primary Care Provider] - (F/u re NSTEMI) Prescriptions: Aspirin [Adult Aspirin Regimen] 81 mg PO QPM #30 tablet. Ticagrelor [Brilinta 90 mg Tablet] 1 tab PO BID #60 tablet Home Medications: Amlodipine Besylate/Benazepril [Amlodipine-Benazepril 10-20 mg] 1 cap PO DAILY 01/23/20 Primidone [Mysoline 50 mg Tablet] 50 mg PO DAILY 01/23/20 Aspirin [Adult Aspirin Regimen] 81 mg PO QPM #30 tablet. 01/24/20 Atorvastatin Calcium [Lipitor 40 mg Tablet] 80 mg PO DAILY #0 01/24/20 Ticagrelor [Brilinta 90 mg Tablet] 1 tab PO BID #60 tablet 01/24/20 History of Present Illiness History of Present Illness: FRAN SAMANO is a 74 year old male Patient was admitted with chest pain. He did have unstable angina by symptoms. He was seen by cardiology consultation. Patient was thought to have a non- STEMI. He had a cardiac catheterization done which confirmed RCA lesion. Patient was advised on the need for smoking cessation. He is otherwise been hemodynamically stable. He has no further chest pain. Hospital Course Hospital Course: Patient was admitted to telemetry floor. He had slightly elevated troponins. His chest pain is resolved. Cardiology was consulted. He subsequently had cardiac catheterization done which confirmed NSTEMI likely secondary to 90% distal RCA lesion status post PCI with medicated stent. Plan is for dual antiplatelet therapy for 12 months with 81 mg every afternoon of aspirin and Brilinta 90 mg twice daily. Smoking cessation was reemphasized to patient. He will follow-up with Dr. Espinoza and cardiac rehab will be arranged. Post cath follow-up with [facility] at [phone] Physical Exam Vital Signs: Temp Pulse Resp BP Pulse Ox 98.3 F 58 L 19 126/71 H 99 01/24/20 07:55 01/24/20 07:55 01/24/20 07:55 01/24/20 07:55 01/24/20 07:55 Intake & Output 01/23/20 01/24/20 01/25/20 06:59 06:59 06:59 Intake Total 370 Output Total 600 Balance -600 370 Weight 93.2 kg 89.7 kg General appearance: PRESENT: no acute distress, well-developed, well-nourished Head exam: PRESENT: atraumatic, normocephalic Eye exam: PRESENT: conjunctiva pink, EOMI, PERRLA. ABSENT: scleral icterus Ear exam: PRESENT: normal external ear exam Mouth exam: PRESENT: moist, tongue midline Neck exam: ABSENT: carotid bruit, JVD, lymphadenopathy, thyromegaly Respiratory exam: PRESENT: clear to auscultation rachell. ABSENT: rales, rhonchi, wheezes Cardiovascular exam: PRESENT: RRR. ABSENT: diastolic murmur, rubs, systolic murmur Pulses: PRESENT: normal dorsalis pedis pul Vascular exam: PRESENT: normal capillary refill GI/Abdominal exam: PRESENT: normal bowel sounds, soft. ABSENT: distended, guarding, mass, organolmegaly, rebound, tenderness Rectal exam: PRESENT: deferred Extremities exam: PRESENT: full ROM. ABSENT: calf tenderness, clubbing, pedal edema Neurological exam: PRESENT: alert, awake, oriented to person, oriented to place, oriented to time, oriented to situation, CN II-XII grossly intact. ABSENT: motor sensory deficit Psychiatric exam: PRESENT: appropriate affect, normal mood. ABSENT: homicidal ideation, suicidal ideation Skin exam: PRESENT: dry, intact, warm. ABSENT: cyanosis, rash Results Laboratory Results: WBC 7.8 10^3/uL (4.0-10.5) 01/22/20 17:51 RBC 4.71 10^6/uL (4.35-5.55) 01/22/20 17:51 Hgb 13.9 g/dL (13.5-17.0) 08/17/20 17:51 Hct 40.4 % (37.9-51.0) 01/22/20 17:51 MCV 86 fl (80-97) 01/22/20 17:51 MCH 29.6 pg (27.0-33.4) 01/22/20 17:51 MCHC 34.5 g/dL (32.0-36.0) 01/22/20 17:51 RDW 13.7 % (11.5-14.0) 01/22/20 17:51 Plt Count 271 10^3/uL (150-450) 01/22/20 17:51 Lymph % (Auto) 23.7 % (13-45) 01/22/20 17:51 Travis % (Auto) 10.2 % (3-13) 01/22/20 17:51 Eos % (Auto) 4.3 % (0-6) 01/22/20 17:51 Baso % (Auto) 0.8 % (0-2) 01/22/20 17:51 Absolute Neuts (auto) 4.8 10^3/uL (1.7-8.2) 01/22/20 17:51 Absolute Lymphs (auto) 1.9 10^3/uL (0.5-4.7) 01/22/20 17:51 Absolute Monos (auto) 0.8 10^3/uL (0.1-1.4) 01/22/20 17:51 Absolute Eos (auto) 0.3 10^3/uL (0.0-0.6) 01/22/20 17:51 Absolute Basos (auto) 0.1 10^3/uL (0.0-0.2) 01/22/20 17:51 Seg Neutrophils % 61.0 % (42-78) 01/22/20 17:51 PT 13.5 SEC (11.4-15.4) 01/22/20 17:51 INR 1.01 01/22/20 17:51 APTT 34.3 SEC (23.5-35.8) 01/22/20 17:51 Sodium 138.0 mmol/L (137-145) 01/24/20 08:44 Potassium 4.3 mmol/L (3.6-5.0) 01/24/20 08:44 Chloride 105 mmol/L (98-107) 01/24/20 08:44 Carbon Dioxide 23 mmol/L (22-30) 01/24/20 08:44 Anion Gap 10 (5-19) 01/24/20 08:44 BUN 19 mg/dL (7-20) 01/24/20 08:44 Creatinine 1.28 mg/dL (0.52-1.25) H 01/24/20 08:44 Est GFR ( Amer) > 60 (>60) 01/24/20 08:44 Est GFR (MDRD) Non-Af 55 (>60) L 01/24/20 08:44 Glucose 124 mg/dL (75-110) H 01/24/20 08:44 Calcium 9.4 mg/dL (8.4-10.2) 01/24/20 08:44 Magnesium 2.2 mg/dL (1.6-2.3) 01/22/20 17:51 Total Bilirubin 0.5 mg/dL (0.2-1.3) 01/22/20 17:51 Direct Bilirubin 0.0 mg/dL (0.0-0.4) 01/22/20 17:51 Neonat Total Bilirubin Not Reportable 01/22/20 17:51 Neonat Direct Bilirubin Not Reportable 01/22/20 17:51 Neonat Indirect Bili Not Reportable 01/22/20 17:51 AST 24 U/L (17-59) 01/22/20 17:51 ALT 25 U/L (<50) 01/22/20 17:51 Alkaline Phosphatase 96 U/L (38-126) 01/22/20 17:51 Creatine Kinase 145 U/L (55-170) 01/22/20 17:51 Troponin I 0.107 ng/mL 01/23/20 13:44 Total Protein 7.0 g/dL (6.3-8.2) 01/22/20 17:51 Albumin 4.3 g/dL (3.5-5.0) 01/22/20 17:51 01/22/20 01/22/20 01/23/20 17:51 20:14 02:00 Troponin I 0.098 0.116 0.123 01/23/20 01/23/20 08:03 13:44 Troponin I 0.125 0.107 Impressions: Chest X-Ray 01/22/20 17:44 IMPRESSION: NO ACUTE RADIOGRAPHIC FINDING IN THE CHEST. Plan Health Concerns: Smoking cessation strongly advised Time Spent: Less than 30 Minutes Stroke Is this a Stroke Patient?: No Acute Heart Failure - Is this a Heart Failure Patient?: No
[2020-01-24 13:07] VITALS: BP 108/55
== END 2020-01-24 13:38 | disposition home or self-care (01) | DRG 247 ==
LOC: ER 16:03 → EH 21:20 → 4N 23:56
PROVIDERS: ADMIT Family Medicine; ATTEND Internal Medicine
PROC: 027034Z Dilation of Coronary Artery, One Artery with Drug-eluting Intraluminal Device, Percutaneous Approach (ICD-10-PCS; principal; 2020-01-23)
PROC: 4A023N7 Measurement of Cardiac Sampling and Pressure, Left Heart, Percutaneous Approach (ICD-10-PCS; 2020-01-23)
PROC: B2111ZZ Fluoroscopy of Multiple Coronary Arteries using Low Osmolar Contrast (ICD-10-PCS; 2020-01-23)
PROC: B2151ZZ Fluoroscopy of Left Heart using Low Osmolar Contrast (ICD-10-PCS; 2020-01-23)
DX: I21.4 Non-ST elevation (NSTEMI) myocardial infarction (principal); E78.5 Hyperlipidemia, unspecified; N18.9 Chronic kidney disease, unspecified; I12.9 Hypertensive chronic kidney disease with stage 1 through stage 4 chronic kidney disease, or unspecified chronic kidney disease; F17.210 Nicotine dependence, cigarettes, uncomplicated; E78.00 Pure hypercholesterolemia, unspecified; Z95.5 Presence of coronary angioplasty implant and graft; Z79.899 Other long term (current) drug therapy
CPT/HCPCS: 36415; 71046; 80048; 80053; 82550; 83735; 84484; 85025; 85610; 85730; 92928; 93005; 93010; 93458; 99285; C1725; C1769; C1874; C1887; J0583; J1200; J1644; J1650; J2250; J3010; J3490